=== PATIENT | male | born 1980 | race Caucasian/White ===

== ENCOUNTER 2017-08-01 18:01 | Emergency (ER) | payer OTHER ==
[~2017-08-01] VITALS: Ht 180.3 cm; Wt 86.2 kg
[2017-08-01] MEDS ORDERED: HYDROCODONE-AP1 EAC6 PO (18:49)
[2017-08-01 19:00] VITALS: BP 133/82
== END 2017-08-01 19:01 | disposition home or self-care (01) ==
LOC: M.ERS 18:01
DX: S20.211A Contusion of right front wall of thorax, initial encounter (principal); F17.200 Nicotine dependence, unspecified, uncomplicated; V43.92XA Unspecified car occupant injured in collision with other type car in traffic accident, initial encounter; Y93.89 Activity, other specified; Y92.89 Other specified places as the place of occurrence of the external cause; Y99.8 Other external cause status